=== PATIENT | male | born 1970 | race Caucasian/White ===

== ENCOUNTER → 2023-03-18 | Outpatient (CLI) | payer BC ==
[~2023-03-18] MED LIST: AZIT250 PO; Antivert12.5 MG PO; MAGOXI400 PO; Valium5 MG PO
[2023-03-19 12:03] LABS: Stool Occult Bld Immuno 1 Negative (NEGATIVE)
== END ==
LOC: LAB SHORT 05:30 → LAB 05:30
PROVIDERS: Physician Assistant
DX: Z12.11 Encounter for screening for malignant neoplasm of colon (principal)
CPT/HCPCS: G0328